=== PATIENT | male | born 1990 | race American Indian/Alaskan Native ===

== ENCOUNTER 2017-09-17 13:21 | Emergency (ER) | payer OTHER ==
--- NOTE | 2017-09-17 14:04 | ED PDOC ---
HPI: General Adult Time Seen by Provider: 09/17/17 13:42 Chief Complaint (Nursing): Altered Mental Status Additional Complaint(s): 26 y/o M c no PMHx p/w dyspnea. Patient was driving through [employer] in his car which he notes does not have working AC and he began feeling short of breath. EMS called, he states en route, they pointed the A/C vent away from him so he was not able to breathe. In ED, he is repeatedly yelling out of his ED room that he can not breathe and stating that nothing has been done for him and saying, "I've lived my life," and "You might as well kill me now." He denies pain. Full HPI/ROS unobtainabe because patient will not cooperate. Past Medical History Vital Signs: Last Vital Signs Temp 98 F 09/17/17 17:19 Pulse 77 09/17/17 17:19 Resp 16 09/17/17 17:19 BP 118/75 09/17/17 17:19 Pulse Ox 100 09/17/17 17:19 - Family History Family History: States: No Known Family Hx - Allergies Allergies/Adverse Reactions: Allergies Allergy/AdvReac Type Severity Reaction Status Date / Time No Known Allergies Allergy Verified 09/17/17 14:28 Review of Systems Review Of Systems: ROS cannot be obtained secondary to pt's inabilty to answer questions. Physical Exam - Physical Exam Comments: Gen: NAD Head: NC Eyes: PERRL. No obvious nystagmus, will not follow object consistently ENT: MMM Neck: Supple Chest: No tenderness CV: Tachycardic rate Lungs: CTA b/l Abd: Soft, NT Back: No CVA tenderness Extremities: No edema Skin: No rash Neuro: Alert, no focal deficit - Laboratory Results Result Diagrams: 09/17/17 13:30 09/17/17 13:30 Medical Decision Making Medical Decision Making: EKG Sinus rhythm, 157 bpm, no ST elevations, LAD Patient uncooperative, required sedation for full evaluation. CXR IMPRESSION: No active disease. Patient awoke, feels well, normal vital signs, labs unremarkable, will discharge. Disposition - Clinical Impression Clinical Impression: Agitation, Dyspnea - Patient ED Disposition Is Patient to be Admitted: No - Disposition Disposition: Routine/Home Disposition Time: 18:34 Condition: STABLE Instructions: Shortness of Breath (Dyspnea) (DC) Forms: [facility] (Amharic)
[2017-09-17 14:33] LABS: BASO % 0.4 % (0.0-2.0); EOS # 0.2 K/uL (0.0-0.7); EOS % 1.5 % (0.0-4.0); HEMOGLOBIN 16.2 g/dL (12.0-18.0); LYMPH # 3.5 K/uL (1.0-4.3); LYMPH % 30.4 % (20.0-40.0); MEAN CELL VOLUME 93.9 fl (80.0-94.0); MEAN CORPUSCULAR HEMOGLOBIN 31.2 pg (27.0-31.0); MEAN CORPUSCULAR HGB CONC 33.2 g/dL (33.0-37.0); MEAN PLATELET VOLUME 10.2 fl (7.2-11.7); MONO # 1.3 K/uL (0.0-0.8); MONO % 10.8 % (0.0-10.0); NEUT # 6.6 K/uL (1.8-7.0); NEUT % 56.9 % (50.0-75.0); NRBC % 0.1 % (0.0-0.0); RBC 5.19 Mil/uL (4.40-5.90); RED CELL DISTRIBUTION WIDTH 12.8 % (11.5-14.5); WHITE BLOOD COUNT 11.6 K/uL (4.8-10.8)
[2017-09-17 14:54] LABS: ALB/GLOB RATIO 1.2 (1.0-2.1); ALBUMIN 4.5 g/dL (3.5-5.0); ALT/SGPT 43 U/L (21-72); AST/SGOT 76 U/L (17-59); BLOOD UREA NITROGEN 19 mg/dl (9-20); CALCIUM 9.3 mg/dL (8.4-10.2); GFR AFRICAN-AMERICAN > 60; GFR NON-AFRICAN AMERICAN > 60
[2017-09-17 15:06] LABS: CK-MB 6.21 ng/mL (0.0-3.38)
[2017-09-17 15:20] LABS: URINE BILIRUBIN NEGATIVE (NEGATIVE); URINE BLOOD NEGATIVE (NEGATIVE); URINE CLARITY CLEAR (Clear); URINE COLOR YELLOW (YELLOW); URINE GLUCOSE (UA) NEG (Normal); URINE LEUKOCYTE ESTERASE NEG Leu/uL (Negative); URINE PROTEIN NEGATIVE (NEGATIVE)
[2017-09-17 15:53] LABS: BARBITURATES, UR NEGATIVE (NEGATIVE); BENZODIAZEPINES, UR NEGATIVE (NEGATIVE); OPIATES, UR NEGATIVE (NEGATIVE); PHENCYCLIDINE, UR NEGATIVE (NEGATIVE)
--- NOTE | 2017-09-17 15:54 | RAD ---
HISTORY: tachycardic, ams COMPARISON: No prior. FINDINGS: LUNGS: No active pulmonary disease. PLEURA: No significant pleural effusion identified, no pneumothorax apparent. CARDIOVASCULAR: Normal. OSSEOUS STRUCTURES: No significant abnormalities. VISUALIZED UPPER ABDOMEN: Normal. OTHER FINDINGS: None. IMPRESSION: No active disease.
[2017-09-17 17:15] VITALS: O2SAT 100
[2017-09-17 17:20] VITALS: BP 118/75
[2017-09-17 17:48] VITALS: TEMP 98
[2017-09-17] MEDS ORDERED: Potassium Chloride 20 mEq ER Tab PO ONE (18:37)
[2017-09-17 19:13] VITALS: PULSE 74; RESP 17
== END 2017-09-17 19:11 | disposition home or self-care (01) ==
LOC: H.ER 13:21
DX: R06.00 Dyspnea, unspecified (principal); R45.1 Restlessness and agitation
CPT/HCPCS: 71045; 80053; 80320; 80324; 80345; 80346; 80349; 80353; 80358; 80361; 81003; 82550; 82553; 83992; 84484; 85025; 96372; 99285; J1630; J2060